=== PATIENT | female | born 1930 | race Caucasian/White ===

== ENCOUNTER 2016-08-31 13:00 | Inpatient (IN) | payer MEDICARE, OTHER ==
[~2016-08-31] VITALS: Ht 152.4 cm; Wt 67.5 kg
[~2016-08-31 13:00] MED LIST: AQUAPHOR1 OI1 TP; ASPI325T6 PO; ASPIR-LOW81 MG PO; ASPIRIN 32325 MG/TAB PO; ASPIRIN 81M81 MG/TA2 PO; ASPIRIN E.C. 8181 MG PO; ATENOLOL50 MG PO; CALCIUM CARBON500 M1 PO; CARDIZEM CD 18180 MG PO; CARDIZEM LA180 MG PO; CEFTIN 250250 MG/TAB PO; CEFTIN500 MG PO; CELEXA40 MG PO; CITALOPRAM HYDR20 MG PO; COSOPT 2%-0.5%10 ML OU; CRANBERRY FRUI405 MG PO; DARVOCET A500 51 TAB PO; DESONIDE; FLUDROCORTISONE PO; GABAPENTIN300 M1 PO; HCTZ 25MG25 MG PO; KLONOPIN 0.5MG0.5 MG PO; KLONOPIN 1MG1 MG PO; KLOR-CON M2020 MEQ PO; LASIX 40MG TABL40 MG PO; LEVAQUIN 750MG750 M1 PO; LISINOPRIL20 MG PO; LOTRISONE CREAM15 GM TP; MULTAQ400 MG PO; MULTI VITAMINS1 TAB PO; MULTIVITAMIN FO1 CAP PO; NEURONTIN100 MG/CAP PO; NORCO 325 MG-7.1 TAB PO; POLY-IRON 150150 MG PO; POTASSIUM CHLO10 ME2 PO; PREDNISONE20 MG PO; PREMARIN 0.60.625 MG PO; PRILOSEC 20MG20 MG PO; PROBIOTIC TP; PROTOP 0.03% 30GM TP; PROTOPIC0.1% TP; RYZOLT200 MG PO; SALAGEN 5MG TAB5 MG PO; SAVELLA50 MG PO; SILVADENE CREAM1 TU TP; TAPAZOLE5 MG PO; TENORMIN 2525 MG/TAB PO; TENORMIN 5050 MG/TAB PO; TRUSOPT 5 ML5 ML OP; TYLENOL 325MG325 MG PO; ULTRAM 50MG TAB50 MG; VICODIN PO; VITAMIN C500 MG PO; XALATAN EYE DROPS OP; XALATAN EYE DROPS OU; XALATAN OU; XARELTO STARTER20 MG PO; XARELTO15 MG PO; XARELTO20 MG PO; ZALATAN; ZESTRIL 20MG TA20 MG PO; ZESTRIL40 MG PO; [UNRECOGNIZED DRUG - OTHER]; cosopt; iron
[2016-09-13] MEDS ORDERED: TEMOVATE OINT30 GM TOP (08:53)
[2016-09-13] MEDS ORDERED: TIMOPTIC 0.5%-15 OU (08:53)
[2016-09-13 09:03] VITALS: BP 131/62; PULSE 79; TEMP 97.8
[2016-09-13 09:15] LABS: BASO # 0.1 (0.0-0.2); BASO % 0.8 % (0.0-2.0); EOS # 1.3 (0.0-0.7); EOS % 11.2 % (0-4.0); GRAN # 6.7 (1.4-6.5); GRAN % 55.6 % (42.2-75.2); HEMATOCRIT 40.4 % (37.0-47.0); HEMOGLOBIN 13.1 g/dl (12.5-16.0); LYMPH % 25.3 % (20.0-51.0); MEAN CELL VOLUME 93 fl (80.0-100.0); MEAN CORPUSCULAR HEMOGLOBIN 30 pg (27.0-31.0); MEAN CORPUSCULAR HGB CONC 32 g/dl (33.0-37.0); MEAN PLATELET VOLUME 9.1 fl (7.4-10.4); MONO # 0.8 (0.1-0.6); MONO % 6.9 % (1.7-9.3); PLATELET COUNT 318 K/mm3 (130-400); PROTHROMBIN TIME 11.5 SECONDS (9.7-12.8); RED BLOOD COUNT 4.36 M/mm3 (4.10-5.30); REDCELL DISTRIBUTION WIDTH-CV 13.9 % (11.5-14.5)
[2016-09-13 09:20] LABS: ADJUSTED CALCIUM 9.7 mg/dL (8.4-10.2); ALBUMIN 4.3 gm/dL (3.5-5.0); BILIRUBIN,TOTAL 0.6 mg/dL (0.0-1.0); CALCIUM 9.9 mg/dL (8.4-10.2); CREATININE, serum 0.82 mg/dL (0.52-1.25); POTASSIUM 4.3 mmol/L (3.4-5.0); TOTAL PROTEIN 7.4 gm/dL (6.4-8.2)
[2016-09-13 11:46] VITALS: BP 117/60; PULSE 64; TEMP 98.3
[2016-09-13 15:36] VITALS: BP 112/64; PULSE 63; TEMP 97.8
[2016-09-13 19:21] VITALS: BP 111/66; PULSE 67; TEMP 97.9
[2016-09-13 23:29] VITALS: BP 124/67; PULSE 76; TEMP 97.9
[2016-09-14 03:31] VITALS: BP 110/62; PULSE 71; TEMP 98
[2016-09-14 07:38] VITALS: BP 116/62; PULSE 77; TEMP 97.7
[2016-09-14 11:54] VITALS: BP 98/57; PULSE 73; TEMP 97.9
[2016-09-14 16:02] VITALS: BP 115/62; PULSE 64; TEMP 97.2
[2016-09-14 19:11] VITALS: BP 120/51; PULSE 65; TEMP 98
[2016-09-14 23:26] VITALS: BP 103/57; PULSE 66; TEMP 97.8
[2016-09-15 03:35] VITALS: BP 109/55; PULSE 66; TEMP 97.9
[2016-09-15 07:33] VITALS: BP 117/55; PULSE 63; TEMP 97.5
[2016-09-15] MEDS ORDERED: CEPHALEXIN500 M1 PO (11:01)
== END 2016-09-15 11:35 | disposition home or self-care (01) | DRG 262 ==
LOC: MEDICAL 09-13 08:02
PROVIDERS: Internal Medicine Cardiovascular Disease
PROC: 0JH602Z Insertion of Monitoring Device into Chest Subcutaneous Tissue and Fascia, Open Approach (ICD-10-PCS; principal; 2016-09-13)
DX: I48.0 Paroxysmal atrial fibrillation (principal); I10 Essential (primary) hypertension; I25.10 Atherosclerotic heart disease of native coronary artery without angina pectoris; I35.8 Other nonrheumatic aortic valve disorders
CPT/HCPCS: C1764

== ENCOUNTER 2018-03-30 08:20 | Day surgery (SDC) | payer MEDICARE, OTHER ==
[2008-02-27 11:58] VITALS: BP 163/68
[2018-03-30] VITALS (7 sets, daily range): BP systolic 102–156; BP diastolic 64–102; PULSE 80–118; TEMP 97.5–98.2
[~2018-03-30] VITALS: Ht 152.5 cm; Wt 74.0 kg
[~2018-03-30 08:20] MED LIST changes: +CEPHALEXIN500 M1 PO; +TEMOVATE OINT30 GM TOP; +TIMOPTIC 0.5%-15 OU
[2018-03-30] MEDS ORDERED: BETAPACE 120MG120 MG PO ×2 (09:09→11:11)
[2018-03-30] MEDS ORDERED: ELIQUIS 5MG PO (09:09)
[2018-03-30] MEDS ORDERED: TEMOVATE0.052 TOP (09:11)
[2018-03-30] MEDS ORDERED: COSOPT 2%-0.5%10 ML OU (09:12)
[2018-03-30] MEDS ORDERED: ZANTAC 150MG T150 MG PO (09:13)
[2018-03-30] MEDS ORDERED: PAMELOR 10MG10 MG (09:13)
[2018-03-30 09:27] LABS: HEMATOCRIT 43.2 % (37.0-47.0); HEMOGLOBIN 13.7 g/dl (12.5-16.0); MEAN CELL VOLUME 92 fl (80.0-100.0); MEAN CORPUSCULAR HEMOGLOBIN 29 pg (27.0-31.0); MEAN CORPUSCULAR HGB CONC 32 g/dl (33.0-37.0); MEAN PLATELET VOLUME 10.8 fl (7.4-10.4); PLATELET COUNT 319 K/mm3 (130-400); RED BLOOD COUNT 4.69 M/mm3 (4.10-5.30)
[2018-03-30 09:54] LABS: CALCIUM 9.6 mg/dL (8.4-10.2); CREATININE, serum 0.67 mg/dL (0.52-1.25); POTASSIUM 4.5 mmol/L (3.4-5.0)
[2018-03-30 09:57] LABS: INR 1.2 (0.8-3.0); PROTHROMBIN TIME 13.3 SECONDS (9.7-12.8)
[2018-03-30 10:25] LABS: THYROID STIMULATING HORMONE 1.54 uIU/mL (0.465-4.680)
== END 2018-03-30 13:34 | disposition home or self-care (01) ==
LOC: COL.CAR 08:20
PROVIDERS: Internal Medicine Cardiovascular Disease
DX: I48.0 Paroxysmal atrial fibrillation (principal); D64.9 Anemia, unspecified; F41.1 Generalized anxiety disorder; I08.3 Combined rheumatic disorders of mitral, aortic and tricuspid valves; I25.10 Atherosclerotic heart disease of native coronary artery without angina pectoris; F32.9 Major depressive disorder, single episode, unspecified; I10 Essential (primary) hypertension; K21.9 Gastro-esophageal reflux disease without esophagitis; M15.9 Polyosteoarthritis, unspecified; E03.9 Hypothyroidism, unspecified; G47.00 Insomnia, unspecified; M79.2 Neuralgia and neuritis, unspecified; B02.9 Zoster without complications; I87.2 Venous insufficiency (chronic) (peripheral); Z96.653 Presence of artificial knee joint, bilateral; Z96.643 Presence of artificial hip joint, bilateral; Z90.710 Acquired absence of both cervix and uterus; Z88.1 Allergy status to other antibiotic agents; Z79.82 Long term (current) use of aspirin; Z79.01 Long term (current) use of anticoagulants
CPT/HCPCS: J1650; J2250; J3010; J7030

== ENCOUNTER 2018-11-20 16:23 | Emergency (ER) | payer MEDICARE, OTHER ==
[2008-02-27 11:58] VITALS: BP 163/68
[~2018-11-20] VITALS: Ht 152.4 cm; Wt 68.2 kg
[~2018-11-20 16:23] MED LIST changes: +BETAPACE 120MG120 MG PO; +ELIQUIS 5MG PO; +LIPITOR 40MG TA40 MG PO; +PAMELOR 10MG10 MG; +TEMOVATE0.052 TOP; +ZANTAC 150MG T150 MG PO
[2018-11-20 16:31] VITALS: TEMP 98.4
[2018-11-20 17:14] LABS: BASO # 0.1 (0.0-0.2); BASO % 0.8 % (0.0-2.0); EOS # 2.1 (0.0-0.7); EOS % 16.5 % (0-4.0); GRAN % 62.8 % (42.2-75.2); HEMATOCRIT 41.3 % (37.0-47.0); HEMOGLOBIN 13.2 g/dl (12.5-16.0); LYMPH # 1.6 (1.2-3.4); LYMPH % 12.5 % (20.0-51.0); MEAN CELL VOLUME 85 fl (80.0-100.0); MEAN CORPUSCULAR HEMOGLOBIN 27 pg (27.0-31.0); MEAN CORPUSCULAR HGB CONC 32 g/dl (33.0-37.0); MEAN PLATELET VOLUME 9.8 fl (7.4-10.4); MONO # 0.9 (0.1-0.6); MONO % 7.2 % (1.7-9.3); PLATELET COUNT 282 K/mm3 (130-400); RED BLOOD COUNT 4.88 M/mm3 (4.10-5.30); REDCELL DISTRIBUTION WIDTH-CV 17.5 % (11.5-14.5)
[2018-11-20 17:21] LABS: INR 1.1 (0.8-3.0)
[2018-11-20 17:31] LABS: ALBUMIN 3.8 gm/dL (3.5-5.0); BILIRUBIN,TOTAL 0.4 mg/dL (0.0-1.0); C-REACTIVE PROTEIN 1.2 mg/dL (0.0-0.9); CALCIUM 9.9 mg/dL (8.4-10.2); CREATININE, serum 0.83 (0.52-1.25); POTASSIUM 4.5 mmol/L (3.4-5.0); TOTAL PROTEIN 7.7 gm/dL (6.4-8.2)
[2018-11-20 18:14] LABS: COLLECTION METHOD CATHETER
[2018-11-20 18:33] LABS: PH 5 (5-8); SQUAMOUS EPITHELIAL 0-2 /hpf; URINE APPEARANCE Clear; URINE BACTERIA None Seen /hpf; URINE BILIRUBIN Negative (NEGATIVE); URINE BLOOD Negative (NEGATIVE); URINE COLOR Yellow; URINE GLUCOSE Negative (NEGATIVE); URINE KETONE Negative (NEGATIVE); URINE LEUKOCYTE ESTERASE Negative (NEGATIVE); URINE NITRATE Negative (NEGATIVE); URINE PROTEIN(semi-quant) Negative (NEGATIVE); URINE RBC 0-2 /hpf; URINE UROBILINOGEN Negative (NEGATIVE)
[2018-11-20 19:09] VITALS: BP 105/74; PULSE 89
== END 2018-11-20 19:09 | disposition home or self-care (01) ==
LOC: COL.ER 16:23
PROVIDERS: Emergency Medicine
DX: S00.93XA Contusion of unspecified part of head, initial encounter (principal); I48.91 Unspecified atrial fibrillation; F32.9 Major depressive disorder, single episode, unspecified; F41.9 Anxiety disorder, unspecified; I10 Essential (primary) hypertension; Z79.82 Long term (current) use of aspirin; W05.0XXA Fall from non-moving wheelchair, initial encounter

== ENCOUNTER 2018-12-27 15:32 | Emergency (ER) | payer MEDICARE, OTHER ==
[2008-02-27 11:58] VITALS: BP 163/68
[~2018-12-27] VITALS: Ht 152.4 cm; Wt 70.5 kg
[2018-12-27 15:34] VITALS: TEMP 97.6
[2018-12-27 16:32] LABS: BASO # 0.1 (0.0-0.2); BASO % 0.7 % (0.0-2.0); EOS % 6.4 % (0-4.0); GRAN # 11.6 (1.4-6.5); GRAN % 72.3 % (42.2-75.2); HEMATOCRIT 40.4 % (37.0-47.0); HEMOGLOBIN 12.4 g/dl (12.5-16.0); LYMPH % 12.2 % (20.0-51.0); MEAN CELL VOLUME 90 fl (80.0-100.0); MEAN CORPUSCULAR HEMOGLOBIN 28 pg (27.0-31.0); MEAN CORPUSCULAR HGB CONC 31 g/dl (33.0-37.0); MONO # 1.3 (0.1-0.6); PLATELET COUNT 299 K/mm3 (130-400); RED BLOOD COUNT 4.48 M/mm3 (4.10-5.30); REDCELL DISTRIBUTION WIDTH-CV 18.9 % (11.5-14.5)
[2018-12-27 16:47] LABS: ALANINE AMINOTRANSFERASE 29 U/L (9-52); ALKALINE PHOSPHATASE 124 U/L (50-136); ANION GAP 10 mmol/L (7-16); AST,SGOT 44 U/L (15-37); BILIRUBIN,TOTAL 0.4 mg/dL (0.0-1.0); BLOOD UREA NITROGEN 19 mg/dL (7-17); CALCIUM 9.8 mg/dL (8.4-10.2); CARBON DIOXIDE 28 mmol/L (22-30); CHLORIDE 105 mmol/L (98-107); GLUCOSE 113 mg/dL (74-106); INR 1.1 (0.8-3.0); LIPASE 54 U/L (23-300); POTASSIUM 4.7 mmol/L (3.4-5.0); PROTHROMBIN TIME 12.9 SECONDS (9.7-12.8); SODIUM 144 mmol/L (137-145); TOTAL PROTEIN 7.5 gm/dL (6.4-8.2)
[2018-12-27 17:06] LABS: TROPONIN-I < 0.012 ng/mL (0.000-0.035)
[2018-12-27 20:10] VITALS: BP 136/71; PULSE 76
== END 2018-12-27 20:30 | disposition home or self-care (01) ==
LOC: COL.ER 15:32
PROVIDERS: Emergency Medicine
DX: R07.89 Other chest pain (principal); I25.10 Atherosclerotic heart disease of native coronary artery without angina pectoris; Z79.82 Long term (current) use of aspirin
CPT/HCPCS: J7030; Q9967

== ENCOUNTER 2019-05-01 18:25 | Emergency (ER) | payer MEDICARE, OTHER ==
[2008-02-27 11:58] VITALS: BP 163/68
[~2019-05-01] VITALS: Ht 152.4 cm; Wt 69.5 kg
[2019-05-01 18:26] VITALS: PULSE 97; TEMP 98.4
[2019-05-01 19:19] LABS: BASO # 0.1 (0.0-0.2); BASO % 0.5 % (0.0-2.0); EOS # 0.8 (0.0-0.7); EOS % 4.3 % (0-4.0); GRAN # 14.3 (1.4-6.5); GRAN % 80.5 % (42.2-75.2); HEMATOCRIT 38.1 % (37.0-47.0); HEMOGLOBIN 12.2 g/dl (12.5-16.0); LYMPH # 1.5 (1.2-3.4); LYMPH % 8.5 % (20.0-51.0); MEAN CELL VOLUME 89 fl (80.0-100.0); MEAN CORPUSCULAR HEMOGLOBIN 29 pg (27.0-31.0); MEAN CORPUSCULAR HGB CONC 32 g/dl (33.0-37.0); MEAN PLATELET VOLUME 10.2 fl (7.4-10.4); MONO % 5.6 % (1.7-9.3); PLATELET COUNT 258 K/mm3 (130-400); RED BLOOD COUNT 4.27 M/mm3 (4.10-5.30); REDCELL DISTRIBUTION WIDTH-CV 17.2 % (11.5-14.5)
[2019-05-01 19:22] LABS: ALANINE AMINOTRANSFERASE 42 U/L (9-52); ALBUMIN 3.7 gm/dL (3.5-5.0); ALKALINE PHOSPHATASE 126 U/L (50-136); ANION GAP 5 mmol/L (7-16); AST,SGOT 43 U/L (15-37); BILIRUBIN,TOTAL 0.3 mg/dL (0.0-1.0); BLOOD UREA NITROGEN 16 mg/dL (7-17); CALCIUM 9.3 mg/dL (8.4-10.2); CARBON DIOXIDE 29 mmol/L (22-30); CHLORIDE 106 mmol/L (98-107); CREATINE KINASE 40 U/L (30-135); CREATININE, serum 0.63 (0.52-1.25); GLUCOSE 130 mg/dL (74-106); POTASSIUM 4.5 mmol/L (3.4-5.0); SODIUM 139 mmol/L (137-145); TOTAL PROTEIN 6.8 gm/dL (6.4-8.2)
[2019-05-01 19:42] LABS: TROPONIN-I < 0.012 ng/mL (0.000-0.035)
[2019-05-01] MEDS ORDERED: LYRICA 75MG CAP75 MG PO (19:56)
[2019-05-01] MEDS ORDERED: TOPROL XL 25MG25 MG PO (19:57)
[2019-05-01] MEDS ORDERED: NITROSTAT0.4 MG/TAB SL (19:57)
[2019-05-01] MEDS ORDERED: MIRALAX PA17 GM/Dose PO (19:58)
[2019-05-01 20:33] LABS: COLLECTION METHOD CATHETER
[2019-05-01 20:45] LABS: PH 5 (5-8); SQUAMOUS EPITHELIAL None Seen /hpf; URINE APPEARANCE Clear; URINE BACTERIA None Seen /hpf; URINE BILIRUBIN Negative (NEGATIVE); URINE BLOOD Negative (NEGATIVE); URINE COLOR Yellow; URINE GLUCOSE Negative (NEGATIVE); URINE KETONE Negative (NEGATIVE); URINE LEUKOCYTE ESTERASE Negative (NEGATIVE); URINE NITRATE Negative (NEGATIVE); URINE PROTEIN(semi-quant) Negative (NEGATIVE); URINE UROBILINOGEN Negative (NEGATIVE)
[2019-05-01 22:43] VITALS: BP 106/78
== END 2019-05-01 22:45 | disposition short-term general hospital (02) ==
LOC: COL.ER 18:25
PROVIDERS: Emergency Medicine
DX: S72.401A Unspecified fracture of lower end of right femur, initial encounter for closed fracture (principal); I10 Essential (primary) hypertension; I48.91 Unspecified atrial fibrillation; F41.9 Anxiety disorder, unspecified; F32.9 Major depressive disorder, single episode, unspecified; R40.2412 Glasgow coma scale score 13-15, at arrival to emergency department; Z86.73 Personal history of transient ischemic attack (TIA), and cerebral infarction without residual deficits; Z79.82 Long term (current) use of aspirin; X50.1XXA Overexertion from prolonged static or awkward postures, initial encounter
CPT/HCPCS: J2405; J3010; J7030; L1846

== ENCOUNTER → 2019-05-26 | Outpatient (CLI) | payer MEDICARE, OTHER ==
[~2019-05-26] MED LIST changes: +LYRICA 75MG CAP75 MG PO; +MIRALAX PA17 GM/Dose PO; +NITROSTAT0.4 MG/TAB SL; +TOPROL XL 25MG25 MG PO
== END ==
LOC: ZCOL.LAB 15:24
DX: P59.9 Neonatal jaundice, unspecified (principal)

== ENCOUNTER → 2019-08-08 | Outpatient (CLI) | payer MEDICARE, OTHER | LOC: COL.RAD 13:40 | DX: M97.8XXD Periprosthetic fracture around other internal prosthetic joint, subsequent encounter (principal); Z96.651 Presence of right artificial knee joint; Z96.641 Presence of right artificial hip joint; Z98.1 Arthrodesis status ==

== ENCOUNTER 2019-12-26 11:15 | Outpatient (CLI) | payer MEDICARE, OTHER ==
[2008-02-27 11:58] VITALS: BP 163/68
[~2019-12-26] VITALS: Ht 152.5 cm; Wt 71.0 kg
[2019-12-26 11:56] LABS: INR 1.2 (0.8-3.0); PROTHROMBIN TIME 13.1 SECONDS (9.7-12.8)
[2019-12-26 11:58] VITALS: BP 140/70; PULSE 79; TEMP 64.9
[2019-12-26 12:03] LABS: CALCIUM 10.3 mg/dL (8.4-10.2); CREATININE, serum 0.75 (0.52-1.25); POTASSIUM 4.5 mmol/L (3.4-5.0)
[2019-12-26 12:04] LABS: HEMATOCRIT 40.6 % (37.0-47.0); HEMOGLOBIN 13.1 g/dl (12.5-16.0); MEAN CELL VOLUME 88 fl (80.0-100.0); MEAN CORPUSCULAR HEMOGLOBIN 28 pg (27.0-31.0); MEAN CORPUSCULAR HGB CONC 32 g/dl (33.0-37.0); MEAN PLATELET VOLUME 9.8 fl (7.4-10.4); PLATELET COUNT 253 K/mm3 (130-400); RED BLOOD COUNT 4.64 M/mm3 (4.10-5.30); REDCELL DISTRIBUTION WIDTH-CV 16.3 % (11.5-14.5)
[2019-12-26] MEDS ORDERED: LIPITOR 80MG80 MG PO (12:07)
[2019-12-26] MEDS ORDERED: FERROUS SU325 MG/TAB PO (12:09)
[2019-12-26] MEDS ORDERED: CRANBERRY500 M3 PO (12:19)
[2019-12-26] MEDS ORDERED: VITAMIN C500 MG PO (12:19)
[2019-12-26] MEDS ORDERED: BETIMOL 0.5% OPH5 ML OU (12:19)
[2019-12-26 13:40] VITALS: BP 144/71; PULSE 67
--- NOTE | 2019-12-26 13:40 | NUR ---
recieved report from [facility], pt sits up in bed, awake and alert, no c/o, sips on water
[2019-12-26 14:00] VITALS: BP 152/69; PULSE 63
[2019-12-26 14:15] VITALS: BP 159/76; PULSE 62
--- NOTE | 2019-12-26 14:15 | NUR ---
pt sits up in bed, reviewed with pt moderate sedation restrictions, pt does not drive, will reviewed followup appt with son Khoa in [facility] who takes care of pt.
[2019-12-26 14:30] VITALS: BP 148/68; PULSE 67
--- NOTE | 2019-12-26 14:30 | NUR ---
pt up on bsc to void with 1 assist, tolerated well, assisted dressing. discharged via own w/c to son in lobby, car with followup inst. and activity at 1450
== END 2019-12-26 14:45 | disposition home or self-care (01) ==
LOC: COL.RAD 11:15
PROVIDERS: Internal Medicine Cardiovascular Disease
DX: I45.2 Bifascicular block (principal); Z20.828 Contact with and (suspected) exposure to other viral communicable diseases
CPT/HCPCS: J2704